=== PATIENT | male | born 2000 | race African-American/Black ===

== ENCOUNTER 2023-11-02 21:13 | Emergency (ER) | payer SELFPAY ==
[2023-11-02] MEDS ORDERED: Sterile Water 10 ML ONE (21:37)
[2023-11-02] MEDS ORDERED: cefTRIAXone (ROCEPHIN) 500 MG VIAL ONE (21:37)
== END 2023-11-02 22:04 | disposition home or self-care (01) ==
LOC: CSHERS 21:13
DX: A54.01 Gonococcal cystitis and urethritis, unspecified (principal); A59.03 Trichomonal cystitis and urethritis
CPT/HCPCS: 96372; 99283; J0696